=== PATIENT | male | born 1960 | race Caucasian/White ===

== ENCOUNTER → 2022-11-21 23:29 | Outpatient (CLI) | payer BC, SELFPAY ==
[2022-11-21 18:47] LABS: Basophils # 0.1 K/mm3 (0-0.2); Basophils % 1.1 % (0.1-2.0); Eosinophils # 0.2 K/mm3 (0.0-0.4); Eosinophils % 2.6 % (0.1-12.0); Hematocrit 50.1 % (42.0-52.0); Hemoglobin 16.1 g/dL (14.1-18.0); Lymphocytes # 2.5 K/mm3 (0.7-4.5); Mean Corpuscular HGB Conc 32.2 g/dL (31.8-35.4); Mean Corpuscular Hemoglobin 29.3 pg (27.0-31.2); Monocytes # 0.5 K/mm3 (0.1-1.0); Monocytes % 5.9 % (1.7-9.3); Neutrophils # 4.6 K/mm3 (1.8-7.8); Neutrophils % 58.4 % (37.0-80.0); Platelet Count 297 K/mm3 (142-424); Red Blood Count 5.51 M/mm3 (4.60-6.20); Red Cell Distribution Width 12.9 % (11.5-17.5); White Blood Count 7.9 K/mm3 (4.8-10.8)
[2022-11-21 19:01] LABS: Alanine Aminotransferase 22 U/L (12-78); Albumin Level 4.4 g/dl (3.5-5.0); Albumin/Globulin Ratio 1.6 (1.1-1.8); Alkaline Phosphatase 68 U/L (38-126); Anion Gap 12.1 mEq/L (5-15); Aspartate Amino Transferase 26 U/L (17-59); Bilirubin,Total 0.7 mg/dl (0.2-1.3); Blood Urea Nitrogen 14 mg/dl (9-20); Calcium 8.9 mg/dl (8.4-10.2); Carbon Dioxide 25 mmol/L (22.0-30.0); Chloride 104 mmol/L (98-107); Chol/HDL Ratio 4.4 (1-3.5); Cholesterol 177 mg/dl (140-200); Estimated Glomerular Filt Rate 98 ml/min (>60); GFR (African American) 119 ML/MIN (>60); Globulin 2.8 g/dL (1.3-3.2); Glucose 105 mg/dl (74-100); HDL Cholesterol 40 mg/dl (40-60); Potassium 4.1 mmoL/L (3.5-5.1); Sodium 137 mmol/L (136-145); Total Protein,Serum 7.2 g/dl (6.3-8.2); Triglycerides 78 mg/dl (30-150); VLDL Cholesterol 16 mg/dL (0-40)
[2022-11-21 19:13] LABS: 25-OH Vitamin D, Total 18.1 ng/mL (30-100); Direct LDL Cholesterol 110.26 mg/dL (100-129)
[2022-11-21 19:17] LABS: Free T4 (Free Thyroxine) 1.23 ng/dl (0.78-2.19)
[2022-11-21 19:37] LABS: Prostate Specific Ag Screen 0.9 ng/ml (0.0-4.0); Thyroid Stimulating Hormone 1.74 uIU/mL (0.465-4.68)
[2022-11-21 19:56] LABS: Vitamin B12 249 pg/mL (239-931)
[2022-11-21 20:40] LABS: Hemoglobin A1C 6.2 % (4.0-6.0)
== END ==
PROVIDERS: PCP Emergency Medicine; Visit Provider Emergency Medicine
DX: R06.09 Other forms of dyspnea (principal); J98.4 Other disorders of lung; R53.83 Other fatigue; E55.9 Vitamin D deficiency, unspecified; E66.9 Obesity, unspecified; R73.09 Other abnormal glucose; Z68.36 Body mass index [BMI] 36.0-36.9, adult; Z12.5 Encounter for screening for malignant neoplasm of prostate
CPT/HCPCS: 80053; 80061; 82306; 82607; 83036; 84439; 84443; 85025; G0103

== ENCOUNTER → 2022-11-28 11:52 | Outpatient (CLI) | payer BC, SELFPAY ==
--- NOTE | 2022-11-28 15:18 | ECG_ITS ---
APPROVED REPORT Exam: Resting ECG HR:93 bpm ECG Measurements Heart Rate 93 AXES QRSd 96 QRS 33 QT 351 T 30 QTc 402 Conclusion ATRIAL FIBRILLATION Poor r wave progression ABNORMAL RHYTHM ECG UNCONFIRMED REPORT Electronically signed by : Lonny Raygoza MD 11/28/2022 17:00:50
== END ==
PROVIDERS: PCP Emergency Medicine; Visit Provider Emergency Medicine
DX: R07.9 Chest pain, unspecified (principal)
CPT/HCPCS: 78452; 93005; 93017; A9502

== ENCOUNTER 2022-11-28 15:36 | Emergency (ER) | payer BC, SELFPAY ==
[2022-11-28 15:38] VITALS: BP 132/98; PULSE 81; RESP 18; TEMP 36.6; O2SAT 98; BMI 36.3
--- NOTE | 2022-11-28 15:42 | PC.NURSE ---
22g PIV noted to LAC. PIV removed d/t unable to flush.
--- NOTE | 2022-11-28 16:11 | HMH.EDGENADL ---
Discharge Plan Disposition Patient Disposition: Home, Self-Care Condition: Good Prescriptions Prescriptions: New metoprolol tartrate 50 mg tablet 50 mg PO DAILY Qty: 30 0RF Referrals Follow up/Referrals: Ronny Still MD [Primary Care Provider] - See instructions Activity Restrictions/Add. Instructions Additional Instructions/Restrictions: You were evaluated in the emergency department today and diagnosed with atrial fibrillation. At this time, your heart rate is under control. Return to the emergency department for any new or worsening symptoms, such as chest pain, palpitations, lightheadedness or fainting, heart rate persistently greater than 110 while at rest, or other concerns. 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 Clinical Impressions Clinical Impression: Atrial fibrillation Instructions Patient Instructions: DI for Atrial Fibrillation Discharge ED Provider: Stacey Goodrich General Adult HPI General Chief complaint: Recheck/Abnormal Lab/Rx Stated complaint: tachycardia Time Seen by Provider: 11/28/22 15:49 Mode of Arrival: Wheelchair Source of Information: Patient Limitations: No Limitations Description of Symptoms (Recalled from ER Triage Doc. by RN): Presents from outpatient Stress d/t new onset of afib rvr. Per RN, HR 160's. Metoprolol 5mg IV and Metoprolol 25mg PO given with HR <100. Pt denies symptoms upon arrival to ED. Denies cardiac history. History of Present Illness HPI narrative: This patient is a 62-year-old male with a history of obesity and RED who denies any other past medical history presented to the emergency department for evaluation from the stress lab. He was undergoing a stress test when his heart rate was noted to jump up into the 160s. He was noted to be in atrial fibrillation with RVR on EKG upstairs, according to the cardiology PA who I had an interactive discussion with. He gave him 5 mg of IV metoprolol and 25 mg of oral metoprolol. Patient denies any symptoms associated with this. He remains asymptomatic at this time. He states that he has had chronic fatigue that he attributes to not sleeping much at night. He states that he is wondering if he has been in A-fib for a very long time. He denies any recent fevers, chills, chest pain, shortness of breath, abdominal pain, nausea, vomiting, changes in bowel movements, or other concerns. He does note significant family history of cardiac disease. Related Data Previous Rx's Medication Instructions Recorded metoprolol tartrate 50 mg tablet 50 mg PO DAILY #30 tabs 11/28/22 Allergies Allergy/AdvReac Type Severity Reaction Status Date / Time No Known Allergies Allergy Verified 11/21/22 10:45 [facility] Disclaimer: The information contained in this section may have been updated after the patient was seen, as this information can be updated by other users. Medical History Restrictive airway disease Surgical History H/O rhinoplasty Family History Grandmother Coronary artery disease Grandfather Coronary artery disease Mother Cancer Asthma Social History Smoking Status: Never smoker alcohol intake: current current occupational status: employed Travel in the last 8 weeks: None ROS Obtained: Yes All systems reviewed & no additional complaints except as documented 14 point review of systems obtained and negative except as mentioned in HPI. Physical Exam General General appearance: alert and in no apparent distress Head Head exam: atraumatic and normocephalic Eye Eye exam: Present normal appearance, PERRL and EOMI ENT ENT exam: Present normal exam and tatiana
[2022-11-28 16:27] VITALS: BP 133/90; PULSE 99; RESP 20; O2SAT 96
--- NOTE | 2022-11-28 16:40 | PC.NURSE ---
Pt updated on plan of care. awaiting test results and will continue to monitor.
[2022-11-28 16:43] LABS: Chloride 108 mmol/L (98-107); Potassium 3.7 mmoL/L (3.5-5.1); Sodium 140 mmol/L (136-145)
[2022-11-28 16:44] LABS: Basophils # 0.1 K/mm3 (0-0.2); Basophils % 0.5 % (0.1-2.0); Eosinophils # 0.3 K/mm3 (0.0-0.4); Eosinophils % 2.4 % (0.1-12.0); Hematocrit 49.5 % (42.0-52.0); Hemoglobin 16.2 g/dL (14.1-18.0); Lymphocytes % 18.6 % (10-50); Mean Corpuscular HGB Conc 32.6 g/dL (31.8-35.4); Mean Corpuscular Hemoglobin 29.3 pg (27.0-31.2); Mean Corpuscular Volume 89.7 fl (80-94); Mean Platelet Volume 7.9 fl (7.4-10.4); Monocytes # 0.6 K/mm3 (0.1-1.0); Monocytes % 5.6 % (1.7-9.3); Neutrophils # 7.8 K/mm3 (1.8-7.8); Neutrophils % 72.9 % (37.0-80.0); Platelet Count 246 K/mm3 (142-424); Red Blood Count 5.52 M/mm3 (4.60-6.20); Red Cell Distribution Width 13.1 % (11.5-17.5); White Blood Count 10.7 K/mm3 (4.8-10.8)
[2022-11-28 16:45] LABS: Blood Urea Nitrogen 14 mg/dl (9-20); Creatinine Clearance Estimated 137 mL/min (50-200); Estimated Glomerular Filt Rate 98 ml/min (>60); GFR (African American) 119 ML/MIN (>60)
[2022-11-28 16:46] LABS: Alanine Aminotransferase 26 U/L (12-78); Albumin Level 4.2 g/dl (3.5-5.0); Albumin/Globulin Ratio 1.4 (1.1-1.8); Alkaline Phosphatase 49 U/L (38-126); Anion Gap 12.7 mEq/L (5-15); Aspartate Amino Transferase 39 U/L (17-59); Calcium 8.7 mg/dl (8.4-10.2); Carbon Dioxide 23 mmol/L (22.0-30.0); Globulin 3.1 g/dL (1.3-3.2); Glucose 100 mg/dl (74-100); Magnesium 2.1 mg/dl (1.6-2.3); Total Protein,Serum 7.3 g/dl (6.3-8.2)
[2022-11-28 16:56] LABS: NT Pro Brain Natriuretic Pep. 61.7 pg/mL (0-125)
[2022-11-28 17:02] LABS: Troponin I < 0.01 ng/ml (0.00-0.034)
--- NOTE | 2022-11-28 17:21 | PC.NURSE ---
Pt updated on plan of care. Pt requesting to eat. Okay per MD. Meal tray ordered.
--- NOTE | 2022-11-28 17:25 | PC.NURSE ---
called for meal tray for pt
--- NOTE | 2022-11-28 17:27 | ECG_ITS ---
APPROVED REPORT Exam: Resting ECG HR:89 bpm ECG Measurements Heart Rate 89 AXES QRSd 90 QRS 18 QT 351 T 11 QTc 398 Conclusion ATRIAL FIBRILLATION POSSIBLE ANTERIOR MYOCARDIAL INFARCTION , PROBABLY OLD [30 ms Q WAVE IN V3/V4, OR R < 0.2 mV IN V4] ABNORMAL RHYTHM ECG UNCONFIRMED REPORT Electronically signed by : Lonny Raygoza MD 11/29/2022 20:16:37
--- NOTE | 2022-11-28 17:34 | PC.NURSE ---
Repeat EKG completed per MD's request. Pt updated on plan of care. Meal tray provided.
--- NOTE | 2022-11-28 18:02 | PC.NURSE ---
Lab notified of Trop 3hr being sent an hr early per MD's request.
[2022-11-28 18:40] LABS: Troponin I < 0.01 ng/ml (0.00-0.034)
[2022-11-28 19:08] VITALS: BP 121/81; PULSE 82; RESP 22; TEMP 36.6; O2SAT 97
== END 2022-11-28 19:11 | disposition home or self-care (01) ==
PROVIDERS: Emergency Provider Emergency Medicine; PCP Emergency Medicine
DX: I48.91 Unspecified atrial fibrillation (principal); E66.9 Obesity, unspecified; G47.30 Sleep apnea, unspecified
CPT/HCPCS: 80053; 83735; 83880; 84484; 85025; 93005; 99285

== ENCOUNTER 2022-12-02 10:34 | Day surgery (SDC) | payer BC, SELFPAY ==
[2022-12-02] VITALS (11 sets, daily range): BP systolic 114–145; BP diastolic 69–89; PULSE 54–71; RESP 17–18; O2SAT 92–97; BMI 36.3
--- NOTE | 2022-12-02 07:04 | IR_ITS ---
APPROVED REPORT Patient Location: Outpatient PROCEDURES Left heart catheterization Left ventriculogram Selective coronary angiogram Drug-eluting stent deployment to the proximal LAD Intravascular ultrasound of the LAD INDICATION Accelerated angina pectoris, Abnormal stress test, Coronary artery disease Informed consent was obtained prior to the procedure. COMPLICATIONS None Estimated Blood Loss: Less than 10 mls TECHNIQUE One percent lidocaine used to anesthetize the right anterior aspect of the wrist. The right radial artery was accessed via the Seldinger technique. A 6 Salvadorean sheath was placed in the right radial artery. 150 mg magnesium sulfate, 800 mcg of nitroglycerin, 1mg Lidocaine and 5000 U Heparin were given through the arterial sheath. The papa catheter was also used to perform left heart catheterization, left ventriculogram and selective coronary angiogram. At the end the diagnostic angiogram therapeutic heparin was administered giving a therapeutic ACT and the guide catheter was placed in the left main artery followed by Choice PT extra-support wire being placed on the LAD. A 2.75 x 34 mm resolute for anterior stent was deployed at 18 marcello reducing the stenosis. A 3.5 x 12 mm noncompliant balloon was then placed in the mid and proximal segment and deployed at 20 marcello to post dilate. Following this intravascular ultrasound probe was advanced which demonstrated the mid to distal portion of the stent was properly sized with excellent stent apposition and expansion however the proximal portion showed that it was undersized. A 4 mm x 12 mm noncompliant balloon was then deployed in the proximal half of the stent and then deployed at 20 marcello post dilating. PEE-3 flow was present before and after the procedure. At the end the procedure the apparatus was removed the sheath was removed and hemostasis was achieved using TR banding patient was for the postop holding in stable condition ANGIOGRAPHIC RESULTS The left main artery Normal The left anterior descending artery Proximally normal followed by significant downsizing of the vessel creating at least a 70% stenosis. The remaining LAD is patent The circumflex artery Nondominant with mild 10% luminal regularities The right coronary artery Large and dominant with a mid vessel 20% stenosis and distal 10% luminal regularities The PARRISH ventriculogram reveals Not performed The left ventricular end-diastolic pressure Not measured IMPRESSION Severe LAD disease as described above with successful stenting of the proximal to mid LAD severe disease reduced to 0% with 1 drug-eluting stent Mild to moderate disease in the circumflex artery and right coronary as described above PLAN 1. Dual antiplatelet therapy 2. Risk factor modification 3. LDL less than 55 to be achieved with high intensity statin 4. Avoidance of tobacco products 5. Evaluation for sleep apnea 6. Refer to Dr. Agrawal and Dr. Portillo 7. Cardiac rehabilitation Electronically signed by : Ramu Keen MD 12/02/2022 18:01:51
[2022-12-02 13:07] LABS: CATHL Activated Clotting Time > 400 SEC (74-125)
--- NOTE | 2022-12-02 15:03 | HMH.PHACL ---
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 PATIENT VERBALIZED UNDERSTANDING AND HAD NO QUESTIONS AT THIS TIME. -YOSI CUELLAR, MERLYND
== END 2022-12-02 16:08 | disposition home or self-care (01) ==
LOC: CATHLAB 10:35
PROVIDERS: PCP Emergency Medicine; Visit Provider Internal Medicine
DX: R94.39 Abnormal result of other cardiovascular function study (principal); Z79.899 Other long term (current) drug therapy; I25.118 Atherosclerotic heart disease of native coronary artery with other forms of angina pectoris; I48.91 Unspecified atrial fibrillation; J44.9 Chronic obstructive pulmonary disease, unspecified; E11.9 Type 2 diabetes mellitus without complications; Z79.84 Long term (current) use of oral hypoglycemic drugs; Z79.01 Long term (current) use of anticoagulants
CPT/HCPCS: 85347; 92928; 92978; 93458; 99152; 99153; C1725; C1760; C1769; C1876; C9600; J1644; Q9967

== ENCOUNTER → 2022-12-05 07:16 | Outpatient (CLI) | payer BC, SELFPAY ==
--- NOTE | 2022-12-05 07:17 | CT_ITS ---
FINAL REPORT CLINICAL HISTORY: atypical angina/dyspnea/abnl ecg/paf FINDINGS: Thin section axial CT images of the chest were obtained with contrast. 3D reformatted images were also obtained. This study was performed with techniques to keep radiation doses as low as reasonably achievable (ALARA). Individualized dose reduction techniques using automated exposure control or adjustment of mA and/or kV according to the patient''s size were employed. There is no evidence of pulmonary embolism. There is no evidence of thoracic aortic aneurysm or dissection. Left coronary artery stents are present. There is no evidence of mediastinal or hilar mass or adenopathy. There is no evidence of pulmonary mass or nodule. No localized inflammatory process is seen within the lungs. There is mild left base atelectasis. Limited images of the upper abdomen are unremarkable. IMPRESSION: No evidence of pulmonary embolism. Mild left base atelectasis. Reviewed, Interpreted and Dictated by Roe New III, MD Transcribed by Lisa Lee Authenticated and [facility]
== END ==
PROVIDERS: PCP Emergency Medicine; Visit Provider Physician Assistant
DX: I20.8 Other forms of angina pectoris (principal); I48.91 Unspecified atrial fibrillation; R06.00 Dyspnea, unspecified
CPT/HCPCS: 71275; Q9967

== ENCOUNTER → 2022-12-11 11:46 | Outpatient (CLI) | payer BC, SELFPAY ==
[2022-12-11 12:11] LABS: Basophils % 0.4 % (0.1-2.0); Eosinophils # 0.2 K/mm3 (0.0-0.4); Eosinophils % 2.5 % (0.1-12.0); Hematocrit 48.9 % (42.0-52.0); Hemoglobin 16.3 g/dL (14.1-18.0); Lymphocytes # 1.8 K/mm3 (0.7-4.5); Lymphocytes % 19.9 % (10-50); Mean Corpuscular HGB Conc 33.4 g/dL (31.8-35.4); Mean Corpuscular Hemoglobin 29.9 pg (27.0-31.2); Mean Corpuscular Volume 89.5 fl (80-94); Mean Platelet Volume 7.9 fl (7.4-10.4); Monocytes # 0.7 K/mm3 (0.1-1.0); Monocytes % 7.6 % (1.7-9.3); Neutrophils # 6.2 K/mm3 (1.8-7.8); Neutrophils % 69.6 % (37.0-80.0); Platelet Count 248 K/mm3 (142-424); Red Blood Count 5.46 M/mm3 (4.60-6.20); White Blood Count 8.9 K/mm3 (4.8-10.8)
[2022-12-11 12:31] LABS: Anion Gap 14.3 mEq/L (5-15); Blood Urea Nitrogen 15 mg/dl (9-20); Calcium 8.9 mg/dl (8.4-10.2); Carbon Dioxide 22 mmol/L (22.0-30.0); Chloride 108 mmol/L (98-107); Estimated Glomerular Filt Rate 98 ml/min (>60); GFR (African American) 119 ML/MIN (>60); Glucose 103 mg/dl (74-100); Potassium 4.3 mmoL/L (3.5-5.1); Sodium 140 mmol/L (136-145)
== END ==
PROVIDERS: PCP Emergency Medicine; Visit Provider Nurse Practitioner Family
DX: I25.10 Atherosclerotic heart disease of native coronary artery without angina pectoris (principal); R06.00 Dyspnea, unspecified; E11.9 Type 2 diabetes mellitus without complications; I48.91 Unspecified atrial fibrillation; R94.31 Abnormal electrocardiogram [ECG] [EKG]
CPT/HCPCS: 36415; 80048; 85025

== ENCOUNTER → 2022-12-25 13:48 | Outpatient (CLI) | payer BC, SELFPAY | PROVIDERS: PCP Emergency Medicine; Visit Provider Physician Assistant | DX: R07.9 Chest pain, unspecified (principal) | CPT/HCPCS: 93306 ==

== ENCOUNTER → 2023-02-10 12:03 | Outpatient (CLI) | payer BC, SELFPAY ==
[2023-02-10 13:05] LABS: Alanine Aminotransferase 26 U/L (12-78); Albumin Level 4.1 g/dl (3.5-5.0); Alkaline Phosphatase 75 U/L (38-126); Aspartate Amino Transferase 26 U/L (17-59); Bilirubin,Indirect 0.5 mg/dL (0.0-0.9); Bilirubin,Total 0.5 mg/dl (0.2-1.3); Bilirubin,Unconjugated 0.6 mg/dL (0.0-1.1); Chol/HDL Ratio 2.8 (1-3.5); Cholesterol 108 mg/dl (140-200); HDL Cholesterol 38 mg/dl (40-60); Total Protein,Serum 6.9 g/dl (6.3-8.2); Triglycerides 83 mg/dl (30-150); VLDL Cholesterol 17 mg/dL (0-40)
[2023-02-10 15:14] LABS: Chloride 106 mmol/L (98-107)
[2023-02-10 15:15] LABS: Potassium 4.2 mmoL/L (3.5-5.1); Sodium 142 mmol/L (136-145)
[2023-02-10 15:18] LABS: Anion Gap 15.2 mEq/L (5-15); Blood Urea Nitrogen 12 mg/dl (9-20); Calcium 9.1 mg/dl (8.4-10.2); Carbon Dioxide 25 mmol/L (22.0-30.0); Estimated Glomerular Filt Rate 86 ml/min (>60); GFR (African American) 104 ML/MIN (>60); Glucose 106 mg/dl (74-100)
== END ==
PROVIDERS: PCP Emergency Medicine; Visit Provider Internal Medicine
DX: R06.09 Other forms of dyspnea (principal); I25.118 Atherosclerotic heart disease of native coronary artery with other forms of angina pectoris; I11.9 Hypertensive heart disease without heart failure; I48.0 Paroxysmal atrial fibrillation; E78.2 Mixed hyperlipidemia; R94.31 Abnormal electrocardiogram [ECG] [EKG]; E11.9 Type 2 diabetes mellitus without complications; Z79.84 Long term (current) use of oral hypoglycemic drugs
CPT/HCPCS: 36415; 80048; 80061; 80076

== ENCOUNTER → 2023-07-07 08:04 | Outpatient (CLI) | payer BC, SELFPAY ==
[2023-07-07 08:50] VITALS: PULSE 71; PULSE 73
== END ==
PROVIDERS: PCP Emergency Medicine; Visit Provider Internal Medicine Pulmonary Disease
DX: R06.09 Other forms of dyspnea (principal)
CPT/HCPCS: 94060; 94618; 94640; 94727; 94729

== ENCOUNTER 2023-09-22 09:06 | Outpatient (CLI) | payer BC, SELFPAY | END 2023-09-22 23:59 | LOC: RT 09:07 | PROVIDERS: Visit Provider Internal Medicine Pulmonary Disease | DX: J84.10 Pulmonary fibrosis, unspecified (principal); J98.4 Other disorders of lung | CPT/HCPCS: 94762 ==

== ENCOUNTER 2023-11-11 14:42 | Outpatient (CLI) | payer BC, SELFPAY ==
--- NOTE | 2023-11-11 14:45 | CT_ITS ---
FINAL REPORT TECHNIQUE: Axial imaging of the chest was obtained without contrast. Reformatted images were also obtained and reviewed.This study was performed with techniques to keep radiation doses as low as reasonably achievable, (ALARA). Individualized dose reduction technique using automated exposure control or adjustment of mA and/or kV according to the patient's size were employed. CLINICAL HISTORY: high resolution chest x3 lung nodule supine inspiration, supine expiration and prone inspiration COMPARISON: 12/05/2022 FINDINGS: There is no axillary adenopathy. There is no hilar or mediastinal mass or adenopathy. There is a LAD stent. Heart size is normal. There is no pericardial or pleural effusion. An 8 mm nodule is seen in the posterior right upper lobe, adjacent to the major fissure with mild adjacent groundglass opacity. This is new from prior exam. There is mild scarring at the left lung base. There is no evidence of emphysema, bronchiectasis, air trapping or interstitial lung disease. IMPRESSION: 8 mm nodule in the posterior right upper lobe with mild adjacent groundglass opacity, new from prior exam, favor inflammatory. Consider follow-up CT in 3 months or PET/CT for further evaluation. Reviewed, Interpreted and Dictated by Roe New III, MD Transcribed by Petra Rain Authenticated and [facility]
== END 2023-11-11 23:59 ==
LOC: RAD 14:43
PROVIDERS: PCP Internal Medicine Pulmonary Disease; Visit Provider Internal Medicine Pulmonary Disease
DX: J84.9 Interstitial pulmonary disease, unspecified (principal)
CPT/HCPCS: 71250

== ENCOUNTER 2024-02-17 12:52 | Outpatient (CLI) | payer BC, SELFPAY ==
[2024-02-17 13:06] LABS: Basophils # 0.1 K/mm3 (0-0.2); Basophils % 1.2 % (0.1-2.0); Eosinophils # 0.3 K/mm3 (0.0-0.4); Eosinophils % 3.3 % (0.1-12.0); Hematocrit 51.3 % (42.0-52.0); Hemoglobin 16.5 g/dL (14.1-18.0); Lymphocytes # 2.3 K/mm3 (0.7-4.5); Lymphocytes % 25.8 % (10-50); Mean Corpuscular HGB Conc 32.1 g/dL (31.8-35.4); Mean Corpuscular Hemoglobin 29.7 pg (27.0-31.2); Mean Corpuscular Volume 92.5 fl (80-94); Monocytes # 0.5 K/mm3 (0.1-1.0); Monocytes % 5.5 % (1.7-9.3); Neutrophils # 5.6 K/mm3 (1.8-7.8); Neutrophils % 64.1 % (37.0-80.0); Platelet Count 216 K/mm3 (142-424); Red Blood Count 5.55 M/mm3 (4.60-6.20); Red Cell Distribution Width 14.3 % (11.5-17.5); White Blood Count 8.8 K/mm3 (4.8-10.8)
[2024-02-17 13:27] LABS: Chloride 106 mmol/L (98-107)
[2024-02-17 13:28] LABS: Potassium 4.4 mmoL/L (3.5-5.1); Sodium 140 mmol/L (136-145)
[2024-02-17 13:30] LABS: Alanine Aminotransferase 25 U/L (12-78); Anion Gap 10.4 mEq/L (5-15); Aspartate Amino Transferase 28 U/L (17-59); Bilirubin,Unconjugated 0.8 mg/dL (0.0-1.1); Blood Urea Nitrogen 14 mg/dl (9-20); Carbon Dioxide 28 mmol/L (22.0-30.0); Cholesterol 139 mg/dl (140-200); Estimated Glomerular Filt Rate 86 ml/min (>60); GFR (African American) 103 ML/MIN (>60); Triglycerides 108 mg/dl (30-150); VLDL Cholesterol 22 mg/dL (0-40)
[2024-02-17 13:31] LABS: Alkaline Phosphatase 68 U/L (38-126); Bilirubin,Indirect 0.7 mg/dL (0.0-0.9); Bilirubin,Total 0.7 mg/dl (0.2-1.3); Calcium 9.5 mg/dl (8.4-10.2); Glucose 100 mg/dl (74-100); HDL Cholesterol 46 mg/dl (40-60); Magnesium 1.9 mg/dl (1.6-2.3)
[2024-02-17 13:42] LABS: Direct LDL Cholesterol 72.14 mg/dL (100-129)
[2024-02-17 13:48] LABS: Free T4 (Free Thyroxine) 0.92 ng/dl (0.78-2.19)
[2024-02-17 14:01] LABS: Thyroid Stimulating Hormone 2.51 uIU/mL (0.465-4.68)
[2024-02-17 14:16] LABS: Hemoglobin A1C 6.1 % (4.0-6.0)
== END 2024-02-17 23:59 | disposition home or self-care (01) ==
LOC: LAB 12:53
PROVIDERS: PCP Internal Medicine; Visit Provider Internal Medicine
DX: I48.0 Paroxysmal atrial fibrillation (principal); R94.31 Abnormal electrocardiogram [ECG] [EKG]; R06.09 Other forms of dyspnea; I25.118 Atherosclerotic heart disease of native coronary artery with other forms of angina pectoris; E78.2 Mixed hyperlipidemia; J98.4 Other disorders of lung; Z68.34 Body mass index [BMI] 34.0-34.9, adult; E66.9 Obesity, unspecified; G47.33 Obstructive sleep apnea (adult) (pediatric); E11.9 Type 2 diabetes mellitus without complications; Z79.84 Long term (current) use of oral hypoglycemic drugs; Z79.85 Long-term (current) use of injectable non-insulin antidiabetic drugs
CPT/HCPCS: 36415; 80048; 80061; 80076; 83036; 83735; 84439; 84443; 85025

== ENCOUNTER 2024-07-15 09:24 | Outpatient (CLI) | payer BC, SELFPAY ==
[2024-07-15 09:53] LABS: Basophils # 0.1 K/mm3 (0-0.2); Basophils % 1.1 % (0.1-2.0); Eosinophils # 0.3 K/mm3 (0.0-0.4); Hematocrit 47.5 % (42.0-52.0); Hemoglobin 16.3 g/dL (14.1-18.0); Lymphocytes # 1.9 K/mm3 (0.7-4.5); Lymphocytes % 29.4 % (10-50); Mean Corpuscular HGB Conc 34.3 g/dL (31.8-35.4); Mean Corpuscular Hemoglobin 30.5 pg (27.0-31.2); Mean Corpuscular Volume 89.1 fl (80-94); Mean Platelet Volume 7.1 fl (7.4-10.4); Monocytes # 0.5 K/mm3 (0.1-1.0); Neutrophils # 3.7 K/mm3 (1.8-7.8); Neutrophils % 58.5 % (37.0-80.0); Platelet Count 209 K/mm3 (142-424); Red Blood Count 5.33 M/mm3 (4.60-6.20); Red Cell Distribution Width 13.2 % (11.5-17.5); White Blood Count 6.4 K/mm3 (4.8-10.8)
[2024-07-15 10:19] LABS: Albumin Level 4.1 g/dl (3.5-5.0); Chloride 106 mmol/L (98-107); Sodium 141 mmol/L (136-145)
[2024-07-15 10:20] LABS: Potassium 4.2 mmoL/L (3.5-5.1)
[2024-07-15 10:22] LABS: Alanine Aminotransferase 18 U/L (12-78); Albumin/Globulin Ratio 1.6 (1.1-1.8); Anion Gap 11.2 mEq/L (5-15); Aspartate Amino Transferase 20 U/L (17-59); Blood Urea Nitrogen 13 mg/dl (9-20); Carbon Dioxide 28 mmol/L (22.0-30.0); Estimated Glomerular Filt Rate 86 ml/min (>60); GFR (African American) 103 ML/MIN (>60); Globulin 2.6 g/dL (1.3-3.2); Total Protein,Serum 6.7 g/dl (6.3-8.2)
[2024-07-15 10:23] LABS: Alkaline Phosphatase 62 U/L (38-126); Bilirubin,Total 0.8 mg/dl (0.2-1.3); Calcium 9.4 mg/dl (8.4-10.2); Chol/HDL Ratio 4.3 (1-3.5); Cholesterol 171 mg/dl (140-200); Glucose 119 mg/dl (74-100); HDL Cholesterol 40 mg/dl (40-60); Triglycerides 110 mg/dl (30-150); VLDL Cholesterol 22 mg/dL (0-40)
[2024-07-15 10:34] LABS: Direct LDL Cholesterol 101.13 mg/dL (100-129)
[2024-07-15 10:40] LABS: Free T4 (Free Thyroxine) 0.99 ng/dl (0.78-2.19)
[2024-07-15 10:53] LABS: Microalbumin/Creatinine Ratio 3.5
[2024-07-15 10:54] LABS: Thyroid Stimulating Hormone 2.01 uIU/mL (0.465-4.68)
[2024-07-15 11:16] LABS: Creatinine,Urine Random 206 mg/dL (Not Estab.)
== END 2024-07-15 23:59 | disposition home or self-care (01) ==
LOC: LAB 09:27
PROVIDERS: PCP Internal Medicine; Visit Provider Internal Medicine
DX: E11.9 Type 2 diabetes mellitus without complications (principal); Z13.21 Encounter for screening for nutritional disorder; Z00.00 Encounter for general adult medical examination without abnormal findings; Z13.29 Encounter for screening for other suspected endocrine disorder; Z13.220 Encounter for screening for lipoid disorders; Z79.85 Long-term (current) use of injectable non-insulin antidiabetic drugs
CPT/HCPCS: 36415; 80050; 80053; 80061; 82043; 82306; 82570; 83036; 84439; 84443; 85025

== ENCOUNTER 2024-12-06 09:23 | Outpatient (CLI) | payer OTHER, SELFPAY ==
--- OUTSIDE RECORDS SUMMARY | 2024-12-06 09:26 | XMS_ITS ---
Care Plan - [facility], [facility] Created on: December 06, 2024 Ronny Hernandez : 1960 Sex: Male Author Organization [facility] , [facility] Address [address] [place] [id number] Phone Care Team Providers Care Theater Manager Name Role Phone Alysa KAT, Nick Vasquez Unavailable
--- OUTSIDE RECORDS SUMMARY | 2024-12-06 09:26 | XMS_ITS ---
Author Organization [facility] , [facility] Address [address] [place] [id number] Phone Care Team Providers Care Power Transformer Repairer Name Role Phone Alysa KAT, Nick Harrisrick Unavailable [phone] Plan of Treatment No Plan of Treatment Recorded Assessments Includes: Assessments for all patient encounters No Assessments Recorded Medical Equipment - Implanted Devices Includes: Current and historical Devices No Medical Equipment Recorded Medications Administered Includes: Administered Medications in patient's chart No Administered Medications Recorded Results Includes: Results from 12/07/2023 through 12/06/2024 No Results Recorded For Specified Dates History of Present Illness History of Present Illness not supported for this document type No History of Present Illness Recorded Social History No Social History Recorded - Smoking Status Unknown Medical History Includes: Medical History in patient's chart No Medical History Recorded Family History Includes: Family History in patient's chart No Family History Recorded Review of Systems Review of Systems not supported for this document type No Review of Systems Recorded Mental Status No Mental Status Recorded Functional Status No Functional Status Recorded Physical Exam Physical Exam not supported for this document type No Physical Exam Recorded Insurance Includes: Active Insurance Policies Plan Name Member ID Group # Subscriber Relationship Effect bria Dates - [facility] [id number] Ronny Hernandez Self Clinical Notes Includes: Signed Clinical Notes starting from 08/07/2022 No Clinical Notes Recorded
[2024-12-06 10:01] LABS: Basophils % 0.4 % (0.1-2.0); Eosinophils # 0.2 K/mm3 (0.0-0.4); Eosinophils % 2.4 % (0.1-12.0); Hematocrit 49.4 % (42.0-52.0); Hemoglobin 16.9 g/dL (14.1-18.0); Lymphocytes # 2.2 K/mm3 (0.7-4.5); Lymphocytes % 26.7 % (10-50); Mean Corpuscular HGB Conc 34.2 g/dL (31.8-35.4); Mean Corpuscular Hemoglobin 29.8 pg (27.0-31.2); Mean Platelet Volume 9.3 fl (7.4-10.4); Monocytes # 0.7 K/mm3 (0.1-1.0); Monocytes % 8.5 % (1.7-9.3); Neutrophils # 5.2 K/mm3 (1.8-7.8); Neutrophils % 61.5 % (37.0-80.0); Nucleated Red Blood Cells # 0 10^3/uL; Nucleated Red Blood Cells % 0 %; Platelet Count 240 K/mm3 (142-424); Red Blood Count 5.68 M/mm3 (4.60-6.20); Red Cell Distribution Width 12.5 % (11.5-17.5); Red Cell Distribution Width-SD 39.6 fL; White Blood Count 8.4 K/mm3 (4.8-10.8)
[2024-12-06 10:50] LABS: Alanine Aminotransferase 22 U/L (12-78); Albumin Level 4.1 g/dl (3.5-5.0); Alkaline Phosphatase 69 U/L (38-126); Aspartate Amino Transferase 24 U/L (17-59); Bilirubin,Direct 0.2 mg/dl (0.0-0.4); Bilirubin,Indirect 0.3 mg/dL (0.0-0.9); Bilirubin,Total 0.5 mg/dl (0.2-1.3); Bilirubin,Unconjugated 0.3 mg/dL (0.0-1.1); Blood Urea Nitrogen 15 mg/dl (9-20); Calcium 9.5 mg/dl (8.4-10.2); Carbon Dioxide 20 mmol/L (22.0-30.0); Chloride 110 mmol/L (98-107); Chol/HDL Ratio 4.7 (1-3.5); Cholesterol 198 mg/dl (140-200); Estimated Glomerular Filt Rate 68 ml/min (>60); GFR (African American) 82 ML/MIN (>60); Glucose 125 mg/dl (74-100); HDL Cholesterol 42 mg/dl (40-60); Magnesium 2.1 mg/dl (1.6-2.3); Sodium 141 mmol/L (136-145); Total Protein,Serum 7.4 g/dl (6.3-8.2); Triglycerides 206 mg/dl (30-150); VLDL Cholesterol 41 mg/dL (0-40)
[2024-12-06 11:00] LABS: Direct LDL Cholesterol 104.28 mg/dL (100-129)
[2024-12-06 11:04] LABS: NT Pro Brain Natriuretic Pep. 71.1 pg/mL (0-125)
[2024-12-06 11:05] LABS: Free Thyroxine Index 2.8 ug/dL (5.93-13.13); T4 (Thyroxine) 7.9 ug/dl (5.53-11.0); Triiodothryronine (T3) Uptake 36 % (23.5-40.5)
[2024-12-06 11:07] LABS: Troponin I < 0.01 ng/ml (0.00-0.034)
== END 2024-12-06 23:59 | disposition home or self-care (01) ==
LOC: RT 09:24
PROVIDERS: PCP Internal Medicine; Visit Provider Nurse Practitioner Family
DX: I47.10 Supraventricular tachycardia, unspecified (principal); I48.0 Paroxysmal atrial fibrillation; I25.118 Atherosclerotic heart disease of native coronary artery with other forms of angina pectoris; R06.09 Other forms of dyspnea; E78.2 Mixed hyperlipidemia; E11.9 Type 2 diabetes mellitus without complications; R53.83 Other fatigue; E66.811 Obesity, class 1; Z68.34 Body mass index [BMI] 34.0-34.9, adult
CPT/HCPCS: 36415; 80048; 80061; 80076; 83735; 83880; 84436; 84443; 84479; 84484; 85025; 93270

== ENCOUNTER 2025-01-05 10:24 | Outpatient (CLI) | payer OTHER, SELFPAY ==
--- NOTE | 2025-01-05 | CA_ITS ---
APPROVED REPORT Exam: Pharmacologic Technologist: Collette Blank Ht: 6 ft 1 in Wt: 263 lbs BSA: 2.42 m2 Rhythm: Atrial flutter Medical History Medications: atorvastatin, diltiazem hci er, jardiance, toprol xl, xarelto, tadalafil Stress Test Details Test: Lexiscan Reason for pharmacologic stress test: physical limitation. HR Resting HR: 80 bpm Max Heart Rate (APMHR): 157 bpm Max HR Achieved: 158 bpm Target HR (85% APMHR): 133 bpm % of APMHR: 101 Recovery HR: 126 bpm HR response to stress: Normal HR response to stress BP Resting BP: 132.0/81.0 mmHg Max BP: 132.0/81.0 mmHg Recovery BP: 107.0/74.0 mmHg ECG Resting ECG: Atrial flutter Stress EC.[address] depression Stress ECG Conclusion Symptoms: mild dizziness. Resolved. Arrhythmias/Ectopy: Atrial flutter ST changes: 0.[address] depression Conclusion: Atrial flutter is present at baseline and after Lexiscan administration. No evidence of ischemia after Lexiscan administration. Myoview images are reported separately. Electronically signed by : Marianela Hernadez MD 01/09/2025 16:01:00
--- NOTE | 2025-01-05 10:26 | CA_ITS ---
APPROVED REPORT EXAM: Comprehensive 2D, Doppler, and color-flow Echocardiogram Cloud Automation Tester: Valorie Martínez CRT Ht: 6 ft 1 in Wt: 263lbs BSA: 2.42 BP: 125/72 mmHg Indications: Shortness of Breath, Atrial Fibrillation, Diabetes, CAD 2D Dimensions LA Volume 44.90 mL LA Volume Index 18.10 mL/m2 (M/F) 16-34 M-Mode Dimensions RVDd 2.90 cm (0.9-2.6) LA Diam 3.45 cm (1.9-4.0) LVDd 5.72 cm (3.5-5.7) LVDs 3.88 cm (3.5-5.7) IVSd 1.71 cm (0.6-1.1) PWd 0.69 cm (0.6-1.1) EF (Teich) 59.60% FS 32.20% EDV (Teich) 161.30 mL TAPSE 1.80 (<1.7) ESV (Teich) 65.10 mL LV Diastology E Decel Time 37 (160-240 msec) E/A Ratio 0.80 MED A' 8.10 cm/s LAT A' 13.20 cm/s Aortic Valve AO Peak GR. 4.50 mmHg Mitral Valve MV A Velocity 65.0 (40-130 cm/s) E/A Ratio 0.80 Pulmonary Valve PV Peak Velocity 118.0 (50-150 cm/s) Tricuspid Valve TR P. Velocity 227.00 cm/s RAP Estimate 10.00 mmHg RVSP 30.70 mmHg Left Ventricle The left ventricle is normal size. The left ventricular systolic function is normal. The left ventricular ejection fraction is within the normal range. There is increased LV wall thickness. There is normal LV segmental wall motion. Transmitral Doppler flow pattern suggests impaired LV relaxation. LVEF is 55%. Right Ventricle The right ventricle is normal size. The right ventricular systolic function is normal. Atria The left atrium size is normal. The right atrium size is normal. There is no Doppler evidence of interatrial shunt. Aortic Valve The aortic valve is mildly thickened. There is no aortic valvular stenosis. No aortic regurgitation is present. Mitral Valve The mitral valve is normal in structure. No evidence of mitral valve stenosis. There is no mitral valve regurgitation noted. Tricuspid Valve Tricuspid valve is grossly normal in structure and function. Trace tricuspid regurgitation. There is insufficient TR jet to estimate RVSP. Pulmonic Valve The pulmonary valve is normal in structure. Trace pulmonic regurgitation. Great Vessels The aortic root is normal in size. The ascending aorta is mildly dilated, measuring 3.9 cm in diameter. IVC is normal in size and collapses >50% with inspiration. Pericardium There is no pericardial effusion. Other Information Study Quality: Fair Conclusion Normal biventricular systolic function. No significant valvular stenosis or regurgitation. The ascending aorta is mildly dilated, measuring 3.9 cm in diameter. Correlation with new or recent CTA chest is suggested. Electronically signed by : Marianela Hernadez MD 01/09/2025 00:54:15
--- NOTE | 2025-01-05 11:30 | NM_ITS ---
APPROVED REPORT Exam: Nuclear Stress Test Indication: SOB, Palpitations, Fatigue, DM, High cholesterol, Family history, CAD Patient Location: Outpatient Stress Tech: Collette Monroe AL Tech:Fara Quintana, ARRT, RT (R)(N) Ht: 6 ft 0 in Wt: 263 lbs HR: 99 bpm BP: 132/81 mmHg BSA: 2.39 m2 TID: 0.90 History: SOB, Palpitations, Fatigue, DM, High cholesterol, Family history, CAD Procedure: Patient received 0.4 mg of intravenous Lexiscan, resting heart rate 99 bpm, resting blood pressure 132/81 mmHg, with Lexiscan maximum heart rate achieved was 155 bpm which is % of the maximum predicted heart rate and blood pressure was 135/66 mmHg. With Lexiscan, patient denied any complaint of chest pain. Cardiac Stress and Resting SPECT Images: Cardiac Stress and Resting SPECT images were obtained using technetium 99m Myoview 29.7 mCi stress and 10.54 mCi at rest. Resting and stress imaging in supine and prone positions demonstrate a medium-sized, moderate, reversible perfusion defect in the basal to mid inferior LV wall. Gated imaging demonstrates normal global LV systolic function. There is mild hypokinesis of the basal inferior LV wall. LVEF is calculated at 57%. Conclusion: Medium-sized, moderate, reversible perfusion defect in the basal to mid inferior LV wall. Findings are suggestive of reversible ischemia. Gated imaging demonstrates normal global LV systolic function. There is mild hypokinesis of the basal inferior LV wall. LVEF is calculated at 57%. Electronically signed by : Marianela Hernadez MD 01/09/2025 00:56:43
[2025-01-05] MEDS: ISOTOPE MYOVIEW (PER STUDY) 1 DOSE IV (14:00)
[2025-01-05] MEDS: REGADENOSON 0.4MG/5ML SYRINGE 0.4 MG IV (14:00)
[2025-01-05] MEDS: SODIUM CHLORIDE 0.9% 10ML SYR (RAD ONLY) 10 ML IV ×2 (14:01)
== END 2025-01-05 23:59 | disposition home or self-care (01) ==
LOC: RT 10:24
PROVIDERS: PCP Internal Medicine; Visit Provider Nurse Practitioner Family
DX: I77.810 Thoracic aortic ectasia (principal); I48.92 Unspecified atrial flutter; I25.10 Atherosclerotic heart disease of native coronary artery without angina pectoris; I48.91 Unspecified atrial fibrillation; E11.9 Type 2 diabetes mellitus without complications; E78.00 Pure hypercholesterolemia, unspecified; R94.39 Abnormal result of other cardiovascular function study
CPT/HCPCS: 78452; 93017; 93018; 93306; A9502; J2785

== ENCOUNTER 2025-01-24 14:11 | Outpatient (CLI) | payer OTHER, SELFPAY ==
[2025-01-24 14:45] LABS: Blood Urea Nitrogen 13 mg/dl (9-20); Estimated Glomerular Filt Rate 98 ml/min (>60); GFR (African American) 118 ML/MIN (>60)
[2025-01-24 14:46] LABS: Alanine Aminotransferase 25 U/L (12-78); Albumin Level 4.4 g/dl (3.5-5.0); Alkaline Phosphatase 81 U/L (38-126); Aspartate Amino Transferase 27 U/L (17-59); Bilirubin,Direct 0.2 mg/dl (0.0-0.4); Bilirubin,Indirect 0.7 mg/dL (0.0-0.9); Bilirubin,Total 0.9 mg/dl (0.2-1.3); Bilirubin,Unconjugated 0.7 mg/dL (0.0-1.1); Chol/HDL Ratio 3.6 (1-3.5); Cholesterol 124 mg/dl (140-200); HDL Cholesterol 34 mg/dl (40-60); Total Protein,Serum 7.6 g/dl (6.3-8.2); Triglycerides 118 mg/dl (30-150); VLDL Cholesterol 24 mg/dL (0-40)
[2025-01-24 14:57] LABS: Direct LDL Cholesterol 52.91 mg/dL (100-129)
--- NOTE | 2025-01-24 15:00 | CT_ITS ---
FINAL REPORT TECHNIQUE: Axial imaging of the chest is obtained after the administration of contrast. 3-D MIP reformatted images were also obtained and reviewed per PE protocol. This study was performed with techniques to keep radiation doses as low as reasonably achievable (ALARA). Individualized dose reduction techniques using automated exposure control or adjustment of mA and/or kV according to the patient's size were employed. CLINICAL HISTORY: possible ascending aortic aneurysm COMPARISON: 11/11/2023 FINDINGS: The pulmonary arteries are well filled. There is no evidence of pulmonary embolus. The ascending aorta is dilated to 4.3 cm in size, stable when compared to the prior CTA of the chest dated 11/11/2023. Heart size is normal. There is no mediastinal, hilar, or axillary lymphadenopathy. There is a posterior right upper lobe nodule measuring 10 mm in size, which previously measured 8 mm, the difference favored to be related to slice selection. There are several other tiny adjacent nodules that are not significantly changed. There are no new pulmonary abnormalities and no evidence of consolidation. There is no pleural or pericardial effusion. Limited evaluation of the upper abdomen demonstrates a small hypodense lesion in the left lobe of the liver, that likely represents a hepatic cyst. No acute osseous abnormality. IMPRESSION: Ascending aortic aneurysm, measuring 4.3 cm in size, stable when compared to the prior CT of 11/11/2023. Posterior right upper lobe nodule of 10 mm, also seen on the prior CT. Recommend short-term follow-up CT examination or consider PET/CT if clinically indicated. Reviewed, Interpreted and Dictated by Patricia Vera MD Transcribed by Lupe Stevens Authenticated and . [facility]
[2025-01-24] MEDS: SODIUM CHLORIDE 0.9% 10ML SYR (RAD ONLY) 10 ML IV (15:06)
[2025-01-24] MEDS: IOPAMIDOL-370 (76%);100ML BOTTLE 80 ML IV (15:06)
[2025-01-24] MEDS: 0.9 % SODIUM CHLORIDE 50 ML VIAL IV (15:06)
== END 2025-01-24 23:59 | disposition home or self-care (01) ==
LOC: RAD 14:12
PROVIDERS: PCP Internal Medicine; Visit Provider Nurse Practitioner Family
DX: I71.21 Aneurysm of the ascending aorta, without rupture (principal); R91.1 Solitary pulmonary nodule; E78.5 Hyperlipidemia, unspecified; R06.09 Other forms of dyspnea; R93.1 Abnormal findings on diagnostic imaging of heart and coronary circulation
CPT/HCPCS: 36415; 71275; 80061; 80076; 82565; 84520; Q9967

== ENCOUNTER 2025-01-27 07:56 | Day surgery (SDC) | payer OTHER, SELFPAY ==
[2025-01-27] VITALS (11 sets, daily range): BP systolic 111–151; BP diastolic 63–87; PULSE 54–70; RESP 18; TEMP 36.6–36.7; O2SAT 94–98; BMI 34.8
--- NOTE | 2025-01-27 07:18 | IR_ITS ---
APPROVED REPORT Patient Location: Outpatient PROCEDURES Left heart catheterization Left ventriculogram Selective coronary angiogram INDICATION Abnormal Myoview, Angina pectoris Informed consent was obtained prior to the procedure. COMPLICATIONS none Estimated Blood Loss: less than 10ml TECHNIQUE One percent lidocaine used to anesthetize the right anterior aspect of the wrist. The right radial artery was accessed via the Seldinger technique. A 6 Urdu sheath was placed in the right radial artery. 2.5 mg of Verapamil, 800 mcg of nitroglycerin, 1mg Lidocaine and 5000 U Heparin were given through the arterial sheath. The JL3 catheter was also used to perform left heart catheterization, left ventriculogram and selective coronary angiogram. At the end of the procedure the sheath was removed good hemostasis was achieved using Traclet band, patient was transferred to the postop holding area in stable condition. ANGIOGRAPHIC RESULTS The left main artery Normal The left anterior descending artery Is proximally normal gives rise to the very large first diagonal artery which has a stent in the ostial proximal segment which is widely patent free of in-stent restenosis with excellent proximal distal transitioning. The diagonal artery is bigger than the LAD proper. Distal to the first diagonal artery the LAD has a 40 to 50% stenosis which is concentric long but still provides PEE-3 flow to the relatively small LAD The circumflex artery Normal The right coronary artery Large dominant with a mid vessel 30 to 40% concentric stenosis The PARRISH ventriculogram reveals Preserved at 55% The left ventricular end-diastolic pressure Elevated at 25 mmHg IMPRESSION Coronary artery disease as described above Elevated LVEDP with preserved ejection fraction PLAN 1. Will increase Jardiance from 10 mg daily to 20 mg daily 2. Add Lasix 20 mg daily as needed along with spironolactone 12.5 mg p.o. daily as needed 3. Risk factor modification 4. LDL less than 55 to be achieved with high intensity statin Electronically signed by : Ramu Keen MD 01/27/2025 13:15:17
[2025-01-27 08:28] LABS: Basophils # 0.1 K/mm3 (0-0.2); Basophils % 0.6 % (0.1-2.0); Eosinophils # 0.4 Kmm3 (0.0-0.4); Eosinophils % 4.4 % (0.1-12.0); Hematocrit 48.7 % (42.0-52.0); Hemoglobin 16.5 g/dL (14.1-18.0); Immature Granulocytes # 0.04 10^3uL; Immature Granulocytes % 0.4 %; Lymphocytes # 2.5 K/mm3 (0.7-4.5); Lymphocytes % 28.3 % (10-50); Mean Corpuscular HGB Conc 33.9 g/dL (31.8-35.4); Mean Corpuscular Volume 88.5 fl (80-94); Mean Platelet Volume 9.4 fl (7.4-10.4); Monocytes # 0.8 K/mm3 (0.1-1.0); Monocytes % 8.9 % (1.7-9.3); Neutrophils # 5.1 K/mm3 (1.8-7.8); Neutrophils % 57.4 % (37.0-80.0); Nucleated Red Blood Cells # 0 10^3/uL; Nucleated Red Blood Cells % 0 %; Platelet Count 233 K/mm3 (142-424); Red Cell Distribution Width 12.7 % (11.5-17.5); Red Cell Distribution Width-SD 41.1 fL; White Blood Count 8.9 K/mm3 (4.8-10.8)
[2025-01-27 08:33] LABS: Chloride 110 mmol/L (98-107); Sodium 140 mmol/L (136-145)
[2025-01-27 08:34] LABS: Potassium 3.8 mmoL/L (3.5-5.1)
[2025-01-27 08:36] LABS: Blood Urea Nitrogen 15 mg/dl (9-20); Creatinine Clearance Estimated 128 mL/min (50-200); Estimated Glomerular Filt Rate 85 ml/min (>60); GFR (African American) 103 ML/MIN (>60)
[2025-01-27 08:37] LABS: Anion Gap 8.8 mEq/L (5-15); Calcium 9.3 mg/dl (8.4-10.2); Carbon Dioxide 25 mmol/L (22.0-30.0); Glucose 124 mg/dl (74-100)
[2025-01-27] MEDS: HEPARIN 1,000 UNITS/ML 10ML VIAL (CATH LAB) 5000 UNIT IV (09:47)
[2025-01-27] MEDS: 0.9 % SODIUM CHLORIDE 500 ML 25 ML IV (09:47)
[2025-01-27] MEDS: LIDOCAINE 1% 10ML MDV 10 ML IJ (09:47)
[2025-01-27] MEDS: VERAPAMIL 2.5MG/ML 2ML VIAL 2.5 MG IV (09:48)
[2025-01-27] MEDS: NITROGLYCERIN 800MCG/8ML SYR (CATH LAB) 800 MCG IA (09:48)
[2025-01-27] MEDS: HEPARIN 1,000 UNITS/500ML NS (CATH LAB) 3000 UNIT IV (09:48)
[2025-01-27] MEDS: diphenhydrAMINE 50MG/ML VIAL 50 MG IV (09:48)
[2025-01-27] MEDS: FENTANYL 100MCG/2ML VIAL 50 MCG IV (10:24)
[2025-01-27] MEDS: MIDAZOLAM HCL 1MG/ML 5ML VIAL 1 MG IV (10:24)
[2025-01-27] MEDS: IOPAMIDOL-370 (76%);100ML BOTTLE 60 ML IV (11:39)
== END 2025-01-27 13:04 | disposition home or self-care (01) ==
PROVIDERS: PCP Internal Medicine; Visit Provider Internal Medicine
PROC: 4A023N7 Measurement of Cardiac Sampling and Pressure, Left Heart, Percutaneous Approach (ICD-10-PCS; CPT 93452; principal; 2025-01-27 08:15)
DX: I25.118 Atherosclerotic heart disease of native coronary artery with other forms of angina pectoris (principal); R93.1 Abnormal findings on diagnostic imaging of heart and coronary circulation; R94.39 Abnormal result of other cardiovascular function study; R94.31 Abnormal electrocardiogram [ECG] [EKG]; E11.9 Type 2 diabetes mellitus without complications; I48.91 Unspecified atrial fibrillation; E78.2 Mixed hyperlipidemia; I71.40 Abdominal aortic aneurysm, without rupture, unspecified; E66.9 Obesity, unspecified; Z68.34 Body mass index [BMI] 34.0-34.9, adult; Z95.5 Presence of coronary angioplasty implant and graft; Z82.49 Family history of ischemic heart disease and other diseases of the circulatory system; Z79.84 Long term (current) use of oral hypoglycemic drugs; Z79.899 Other long term (current) drug therapy; Z88.8 Allergy status to other drugs, medicaments and biological substances
CPT/HCPCS: 93458; 80048; 85025; 99152; 99153; C1725; C1760; C1769; J1200; J1644; J2003; J3010; J7040; Q9967